=== PATIENT | male | born 1935 ===

== ENCOUNTER 2017-06-08 06:32 | Day surgery (SDC) | payer MEDICARE, MEDICAID ==
[2017-06-07 10:55] VITALS: BMI 28.3
[2017-06-08] MEDS ORDERED: Gentamicin 160 MG in Sodium Chloride 0.9% 100 ML IVPB ONE (07:30)
[2017-06-08] MEDS ORDERED: Lidocaine 2% Jelly (Uro-Jet) ONE (07:34)
[2017-06-08] MEDS ORDERED: cefTRIAXone IV 1 gm in Dextros 50 ML IVPB ONE (07:34)
[2017-06-08] MEDS ORDERED: Propofol 10 mg/ml Inj (20 ML) ONE (08:17)
[2017-06-08] MEDS ORDERED: Midazolam 2 MG/2 ML VIAL ONE (08:17)
[2017-06-08] MEDS ORDERED: Lactated Ringer's 500 ML IV ONE ×2 (08:20→10:20)
[2017-06-08] MEDS ORDERED: Oxycodone/Acetaminophen 5/325 mg Tab PO PRN (08:56)
[2017-06-08] MEDS ORDERED: HYDROmorphone 0.5 mg/0.5 ml ISec IVP PRN (08:59)
[2017-06-08 10:44] VITALS: PULSE 55
[2017-06-08 11:52] VITALS: BP 113/56; RESP 19; TEMP 97.5; O2SAT 95
--- NOTE | 2017-06-08 19:26 | HP ---
REASON FOR ADMISSION: Workup of hematuria and history of bladder cancer. HISTORY OF PRESENT ILLNESS: Mr. Taylor is a very pleasant 81-year-old gentleman. We found that the bladder cancer present but not overly compliant, but lately, the daughter has been checking him on a more regular basis. We initially found bladder cancer back, part of that has to do with some other social issues and other medical issues. We originally found the bladder cancer and it was difficult to get him back to the office for various medical reasons. But of late, he has been coming in. Either way, the last time we tried to do a cystoscopy, preferred to do it in the office, we were not able to enter the bladder. He has a known stricture disease and is here today for an IOU and at the same time if when we look in the bladder and inspect the bladder, we find recurrent cancer, we are going to plan for a bladder biopsy and fulguration, maybe even a TURBT. See the plan as listed below. PAST MEDICAL AND SURGICAL HISTORY: As listed in the chart, patient of *------*. MEDICATIONS: See the chart. REVIEW OF SYSTEMS: As listed above, noncontributory. No weight loss, chest pain, shortness of breath, night sweats, *------*. No constitutional complaints. ALLERGIES: See the chart. PHYSICAL EXAMINATION: GENERAL: Well-nourished male, in no apparent distress. VITAL SIGNS: Within normal limits. LUNGS: Clear. ABDOMEN: Overall soft, nontender. GENITOURINARY: Normal phallus. No discharge. No testicular masses. RECTAL: 20-30 g prostate, soft and smooth. LABORATORY DATA: See the chart. DIAGNOSES: Gross hematocrit, urethral stricture, and possible recurrent bladder cancer. PLAN: As follows, so we discussed the options with the patient and daughter at length in explaining and translating risk factors. After discussing those options, the plan is as follows. We are going to bring the patient in the hospital for antibiotic prophylaxis. We are going to do a cystoscopy with internal optical urethrotomy. If when we are in the bladder, we find a recurrent cancer, we are also going to plan to address this as well. The patient is currently not bleeding. I explained this to the patient at length that it does not mean that he will never have recurrent bladder cancer. Previously, he has had transitional cell carcinoma. So the plan is as follows: 1. Antibiotic prophylaxis. 2. Cystoscopy. 3. Internal optical urethrotomy. 4. Possible biopsy and fulguration. 5. Possible even TURBT. ADDENDUM: See the operative report as a separately dictated note. The patient could have a stricture, but we did not find any recurrent cancer. Juan Sanders MD
--- NOTE | 2017-06-08 19:53 | OP ---
DATE OF PROCEDURE: 06/08/2017 PREOPERATIVE DIAGNOSES: Hematuria, history of bladder cancer, and urethral stricture. POSTOPERATIVE DIAGNOSES: Hematuria, history of bladder cancer, and urethral stricture, no recurrent cancer. BLOOD LOSS: Less than 10 mL. SPECIMEN SENT DOWN: None. COMPLICATIONS: There were no complications. DRAIN: A [place] catheter. FINDINGS: 1. Normal meatus. 2. There is a stricture in the anterior urethra about 2 cm distal to the verumontanum. 3. The verumontanum is visually occlusive but within normal limits. 4. The bladder itself is inspected carefully, there is no recurrent bladder cancer. INDICATIONS: See the history and physical for details: This is a very pleasant gentleman, 81 years' old, with history of bladder cancer, very pleasant but difficult to get back to the office, but of late has been coming more regularly. Most recently, we did a cystoscope and also wanted tubes in, but the family decided to give time. We were able to comply and help them to assist him as possible, but the last time we brought the patient into the office, *------*. We were not able to gain entry into the bladder because there was a stricture, so today he is here for IOU and then if there is any recurrent cancer, we are going to address that as well. *------* we did not find any cancer, but we did find the stricture. DESCRIPTION OF PROCEDURE: After obtaining informed consent from the patient and explaining risks, benefits, and alternatives with the patient and daughter explaining at great length, the patient was brought to the OR and placed on the table. Routine monitors were placed. Time-out was called to confirm patient, positioning, and also the patient had received antibiotic prophylaxis. We introduced the scope via the urethra. We used the internal optical urethrotomy setup to begin with. I identified the stricture. I took the pictures, see this on the chart. At this point, I put an [place] tip catheter passed the stricture and then I cut with the cold knife anteriorly in the 12 o'clock position. There was a little blood flow, within normal limits. Now, we inspected the bladder carefully from the rear end visually up to 3 cm, inspected bladder carefully. I did not see any bladder cancers. We got a good look. It was not bleeding. I took some pictures of the ureteral orifice which showed clear efflux on both sides. No biopsies were taken. The bladder looked within normal limits. We inserted a [place]-tip catheter over the [place] tip, drained the bladder, connected to a leg bag, and secured in position. We then did a rectal exam that showed a 20-30 g prostate, soft and smooth. The patient tolerated this well without complication. Juan Sanders MD
== END 2017-06-08 11:52 | disposition home or self-care (01) ==
LOC: C.SDS 06:32
PROVIDERS: ATTEND Urology
DX: N35.9 Urethral stricture, unspecified (principal); R31.0 Gross hematuria; Z85.51 Personal history of malignant neoplasm of bladder
CPT/HCPCS: 52276; 82948; J0696; J7120